=== PATIENT | male | born 1945 | race Caucasian/White ===

== ENCOUNTER 2018-05-23 09:20 | Observation (INO) | payer OTHER ==
[~2018-05-23] VITALS: Ht 185.4 cm; Wt 149.2 kg
[~2018-05-23 09:20] MED LIST: AMLODIPINE BESY10 MG PO; HYDRALAZINE HCL25 MG PO; METOPROLOL TART50 MG PO; NORCO 10-325 T1 EACH PO; ULTRAM50 MG PO
[2018-05-23 10:40] LABS: BASOPHILS # (AUTO) 0.1 (0.0-0.1); BASOPHILS % 0.5 % (0.0-1.0); EOSINOPHILS # (AUTO) 0.3 (0.0-0.4); EOSINOPHILS % 2.3 % (0.0-6.0); HEMATOCRIT 42.8 % (38.2-49.6); HEMOGLOBIN 14.3 g/dL (14.0-18.0); LYMPHOCYTES # (AUTO) 1.4 (1.0-3.2); LYMPHOCYTES % 11.6 % (18.0-39.1); MEAN CORPUSCULAR HEMOGLOBIN 28.9 pg (28-32); MEAN CORPUSCULAR HGB CONC 33.4 g/dL (31-35); MEAN CORPUSCULAR VOLUME 86.6 fL (81-99); MONOCYTES # (AUTO) 0.8 (0.2-0.8); MONOCYTES % 6.2 % (4.4-11.3); NEUTROPHILS # (AUTO) 9.9 (2.1-6.9); NEUTROPHILS % 79.1 % (38.7-80.0); PLATELET COUNT 287 x10e3/uL (140-360); RED BLOOD COUNT 4.94 x10e6/uL (4.3-5.7); RED CELL DISTRIBUTION WIDTH 14.9 % (11.7-14.4)
[2018-05-23] MEDS: ASPIRIN 325 MG TAB PO ONE ×2 (10:46→10:47)
--- NOTE | 2018-05-23 10:48 | Diagnostic Imaging Report ---
EXAMINATION: CHEST SINGLE (PORTABLE) INDICATION: Chest pain. Shortness of breath COMPARISON: None FINDINGS: TUBES and LINES: None. LUNGS: Lungs are well inflated. Lungs are clear. There is no evidence of pneumonia or pulmonary edema. PLEURA: No pleural effusion or pneumothorax. HEART AND MEDIASTINUM: The cardiomediastinal silhouette is unremarkable. BONES AND SOFT TISSUES: No acute osseous lesion. Soft tissues are unremarkable. UPPER ABDOMEN: No free air under the diaphragm. IMPRESSION: No acute thoracic abnormality. Signed by: Dr. Seth Kay M.D. on 05/23/2018 10:45 AM
[2018-05-23 11:01] LABS: ALANINE AMINOTRANSFERASE 34 IU/L (0-55); ALBUMIN 3.6 g/dL (3.5-5.0); ALBUMIN/GLOBULIN RATIO 1.2 (0.8-2.0); ALKALINE PHOSPHATASE 85 IU/L (40-150); BLOOD UREA NITROGEN 17 mg/dL (7-26); BUN/CREATININE RATIO 20 (6-25); CALCIUM 9.3 mg/dL (8.4-10.2); CARBON DIOXIDE 25 mmol/L (22-29); CHLORIDE 105 mmol/L (98-107); CREATINE KINASE 48 IU/L (30-200); CREATININE, SERUM 0.85 mg/dL (0.72-1.25); EST GLOMERULAR FILTRATION RATE > 60 ML/MIN (60-); GLUCOSE 117 mg/dL (74-118); SODIUM 140 mmol/L (136-145)
--- OUTSIDE RECORDS SUMMARY | 2018-05-23 11:40 | XMS REPORT ---
Author Author [facility] Address Unknown Phone Unavailable Care Team Providers Care Residential Nurse Name Role Phone Gorge MCBRIDE Unavailable Unavailable Problems This patient has no known problems. Allergies, Adverse Reactions, Alerts This patient has no known allergies or adverse reactions. Medications This patient has no known medications. Results Test Description Test Time Test Comments Text Results Atomic Results Result Comments CHEST SINGLE (PORTABLE) 2018-05-23 10:45:00 [facility] [address] [address] Patient Name: JUAN CARLOS MILIAN V MR #: [id number] : 1945 Age/Sex: 72/M Req #: [id number] Adm Physician: Ordered by: SAMUEL MCBRIDE MD Report #: [id number] Location: ER Room/Bed: Procedure: [id number] DX/CHEST SINGLE (PORTABLE) Exam Date: 05/23/18 Exam Time: 1015 REPORT STATUS: Signed EXAMINATION: CHEST SINGLE (PORTABLE) I NDICATION: Chest pain. Shortness of breath COMPARISON: None FINDINGS: TUBES and LINES: None. LUNGS: Lungs are well inflated. Lungs are clear. There is no evidence of pneumonia or pulmonary edema. PLEURA: No pleural effusion or pneumothorax. HEART AND MEDIASTINUM: The cardiomediastinal silhouette is unremarkable. BONES AND SOFT TISSUES: No acute osseous lesion. Soft tissues are unremarkable. UPPER ABDOMEN: No free air under the diaphragm. IMPRESSION: No acute thoracic abnormality. Signed by: Dr. Seth Kay M.D. on 05/23/2018 10:45 AM Dictated By: SETH KAY MD, MD 1045 Transcribed By: WAYNE on 05/23/18 1045 COPY TO: SAMUEL MCBRIDE MD
[2018-05-23] MEDS: FAMOTIDINE 20 MG/2 ML VIAL IV SCH ×2 (12:00→20:59)
[2018-05-23 13:03] LABS: CHOL/HDL RATIO 4.6 (3.9-4.7)
[2018-05-23 13:25] LABS: THYROID STIMULATING HORMONE 1.982 uIU/mL (0.350-4.940)
--- NOTE | 2018-05-23 13:32 | Consultation ---
DATE OF CONSULTATION: May 23, 2018 CARDIOLOGY CONSULTATION REQUESTING PHYSICIAN: Dr. Sandoval REASON FOR CONSULT: Chest pain, shortness of breath. HISTORY OF PRESENT ILLNESS: Mr. Doimnguez is a 71-year-old gentleman with past medical history as listed below. Apparently, he has been experiencing chest pain off and on for the last 6 months or so. He has also been getting short of breath for the last several weeks and had some leg edema, and he decided to come to the hospital. He stated the chest pain was mild all across his chest. He thought it was reflux. However, since it continued to persist, he called the office, and he was advised to get to the ER. REVIEW OF SYMPTOMS CONSTITUTIONAL: Had some fatigue and weakness. HEENT: No headache, blurring of vision, seizure or syncope. CARDIOVASCULAR: Chest pain. Has some dyspnea. Has leg edema. No orthopnea or PND. RESPIRATORY: No cough, fever, or expectoration. GI: No abdominal pain, vomiting or diarrhea. : No dysuria, frequency, incontinence. ALLERGIES: AZITHROMYCIN. MEDICATIONS: See list. PAST MEDICAL HISTORY 1. History of hypertension. 2. History of chronic backache. 3. History of cellulitis. PAST SURGICAL HISTORY: Tonsillectomy. SOCIAL HISTORY: He does not smoke or drink. FAMILY HISTORY: Noncontributory. PHYSICAL EXAMINATION GENERAL: Obese gentleman who is awake, alert, not in any obvious distress. VITALS: Heart rate 69, blood pressure 142/78, respiratory rate 19, temperature 97.6. HEENT: Atraumatic. NECK: No JVD, bruit, thyromegaly, or lymphadenopathy. CARDIOVASCULAR: The 1st and 2nd heart sounds are heard. No murmurs, rubs or gallops appreciated. CHEST: Decreased air entry at the bases. No adventitious sounds appreciated. ABDOMEN: Obese, nontender. EXTREMITIES: 1+ edema. LABS: WBC 12.4, hemoglobin 14.3, hematocrit 42.8, platelets 287. Sodium 140, potassium 4.0, chloride 108, BUN 17, creatinine 0.5. Troponin 0.03. BNP 604. AST 18, ALT 34, alk phos 85. EKG shows sinus rhythm at 67 beats per minute, normal axis, normal intervals, LVH, ST depression V5 and V6. Chest x-ray: No acute thoracic abnormality. IMPRESSION 1. Congestive heart failure. 2. Chest pain. 3. Hypertension. 4. Obesity. 5. Chronic backache. PLAN 1. IV diuresis. 2. Follow serial cardiac enzymes. 3. Get echocardiogram to assess LV function and valvular function. 4. Treat him with aspirin, beta kd, and CECIL inhibitor. 5. Further cardiac workup depending on clinical course. 6. Counseled on diet, fluid restriction and low salt. 7. I discussed my impression and plan of management with the patient, and he understands. As always, I appreciate and thank you very much for your referrals. Job#: [id number]
[2018-05-23 15:39] VITALS: BP 141/80
[2018-05-23 16:22] VITALS: BP 141/80
[2018-05-23 20:00] VITALS: BP 178/85
[2018-05-23] MEDS ORDERED: HYDRALAZINE HCL 20 MG/ML VIAL IV PRN (20:45)
[2018-05-23 21:47] VITALS: BP 145/67
[2018-05-23 23:32] VITALS: BP 145/67
[2018-05-24 01:00] VITALS: BP 144/76
[2018-05-24 04:50] VITALS: BP 179/79
[2018-05-24 05:12] LABS: BASOPHILS # (AUTO) 0.1 (0.0-0.1); BASOPHILS % 0.5 % (0.0-1.0); EOSINOPHILS # (AUTO) 0.2 (0.0-0.4); EOSINOPHILS % 1.8 % (0.0-6.0); HEMATOCRIT 41.5 % (38.2-49.6); HEMOGLOBIN 13.8 g/dL (14.0-18.0); LYMPHOCYTES # (AUTO) 1.8 (1.0-3.2); LYMPHOCYTES % 15.3 % (18.0-39.1); MEAN CORPUSCULAR HEMOGLOBIN 28.9 pg (28-32); MEAN CORPUSCULAR HGB CONC 33.3 g/dL (31-35); MEAN CORPUSCULAR VOLUME 86.8 fL (81-99); MONOCYTES # (AUTO) 0.8 (0.2-0.8); MONOCYTES % 6.6 % (4.4-11.3); NEUTROPHILS # (AUTO) 8.7 (2.1-6.9); NEUTROPHILS % 75.5 % (38.7-80.0); PLATELET COUNT 260 x10e3/uL (140-360); RED BLOOD COUNT 4.78 x10e6/uL (4.3-5.7)
[2018-05-24 05:46] LABS: CREATINE KINASE MB 2.5 ng/mL (0-5.0)
[2018-05-24 05:55] VITALS: BP 169/71
[2018-05-24 05:59] LABS: ANION GAP 13.7 mmol/L (8-16); BLOOD UREA NITROGEN 13 mg/dL (7-26); BUN/CREATININE RATIO 16 (6-25); CARBON DIOXIDE 24 mmol/L (22-29); CHLORIDE 106 mmol/L (98-107); CREATININE, SERUM 0.81 mg/dL (0.72-1.25); EST GLOMERULAR FILTRATION RATE > 60 ML/MIN (60-); GLUCOSE 125 mg/dL (74-118); POTASSIUM 3.7 mmol/L (3.5-5.1); SODIUM 140 mmol/L (136-145)
[2018-05-24 08:00] VITALS: BP 183/78
[2018-05-24] MEDS: FAMOTIDINE 20 MG/2 ML VIAL IV SCH (08:24)
[2018-05-24 08:38] VITALS: BP 183/78
[2018-05-24] MEDS ORDERED: ASPIRIN 325 MG TAB EC PO SCH (09:00)
[2018-05-24] MEDS ORDERED: LISINOPRIL 2.5 MG TAB PO SCH (09:00)
[2018-05-24] MEDS ORDERED: FUROSEMIDE INJ 10 MG/ML 4 ML VIAL IV SCH (09:00)
[2018-05-24] MEDS ORDERED: POTASSIUM CHLORIDE 10MEQ EA PO SCH (09:00)
[2018-05-24] MEDS ORDERED: METOPROLOL SUCCINATE 25 MG TAB XL PO SCH (09:00)
[2018-05-24] MEDS ORDERED: LASIX40 MG PO (09:36)
[2018-05-24] MEDS ORDERED: POTASSIUM CHLO20 ME1 PO (09:37)
--- NOTE | 2018-05-24 10:07 | History and Physical ---
PRIMARY CARE PROVIDER: Dr. Srinivas Hurtado. WALLBOARD WORKER: Juan M Gamez MD CHIEF COMPLAINT: Chest pain and shortness of breath. HISTORY: This 72-year-old male came to the hospital with chest pain and shortness of breath. Patient was seen by Dr. Gamez. Patient is doing much better now. He is stable. Cardiac enzymes have been negative. Echocardiogram showed that the patient's ejection fraction is approximately 55% to 60% with trace AI and MR. The patient has some fluid overload. He does have chronic venous skin changes of the lower extremities. Patient is obese. PAST MEDICAL HISTORY: Hypertension. Chronic lower back pain. PAST SURGICAL HISTORY: Tonsillectomy. HOME MEDICATIONS: He is taking Norvasc, hydralazine and metoprolol. ALLERGIES: AZITHROMYCIN. SOCIAL HISTORY: Patient does not smoke or use alcohol. No recreational drugs. REVIEW OF SYSTEMS: Atypical chest pain, nonradiating. No nausea or vomiting. Some shortness breath especially with exertion. PHYSICAL EXAMINATION: GENERAL: The patient is not in acute distress. He is awake. VITAL SIGNS: Temperature is 98, blood pressure 183/78. Pulse rate 77. Respirations 18. HEENT: Normocephalic and atraumatic. Sclerae are anicteric. NECK: Supple grossly. No JVD. PULMONARY: Diminished breath sounds at bases with no wheezing or rales. CARDIOVASCULAR: S1 and S2. Regular rate and rhythm. ABDOMEN: Soft, obese. Nontender. Nondistended. EXTREMITIES: 1+ edema with chronic venous skin changes. NEUROLOGIC: No gross focal deficit. LABORATORY: Sodium is 140, potassium 3.7, chloride 106, bicarb 24, BUN 13, creatinine 0.8. Glucose 125. WBC 11.5, hemoglobin 13.8. Hematocrit 41.5. Platelets 260. Echocardiogram: Ejection fraction of 55% to 60%. Chest x-ray is unremarkable. IMPRESSION 1. Atypical chest pain. 2. Fluid overload, possible secondary to obesity versus diastolic dysfunction heart failure. PLAN: Continue with diuresis. Resume home medication. Patient was seen by Dr. Gamez. The patient would like to go home and follow up next week for cardiac stress test. He does not want to wait until Sunday to receive his stress test. The patient is otherwise stable. He is stable to go home and follow up with Dr. Gamez. Job#: [id number]
--- NOTE | 2018-05-24 15:37 | Discharge Summary ---
PRIMARY CARE PHYSICIAN: Dr. Srinivas Hurtado. MARKET DEVELOPMENT EXECUTIVE: Dr. Juan M Gamez. FINAL DIAGNOSES 1. Fluid overload, possible acute diastolic dysfunction heart failure with ejection fraction of 55% to 60%. 2. Lower extremity edema, improving with intravenous Lasix. 3. Obesity. 4. Chest pain, atypical. PLAN: Patient will follow up with Dr. Gamez next week for stress test. The patient is otherwise stable. Please review my history and physical. Patient is to follow up. He will resume his home medication. I will add on Lasix 40 mg once a day along with potassium 20 mEq daily. The patient is to follow up and have his blood rechecked for renal function with his primary care physician, Dr. Srinivas Hurtado. Job#: [id number]
== END 2018-05-24 10:08 | disposition home or self-care (01) ==
LOC: ER 09:20 → ERHOLD 11:24 → IMCU 14:50
PROVIDERS: ADMIT Internal Medicine; ATTEND Internal Medicine
DX: I11.0 Hypertensive heart disease with heart failure (principal); I50.33 Acute on chronic diastolic (congestive) heart failure; R07.2 Precordial pain; M54.9 Dorsalgia, unspecified; I10 Essential (primary) hypertension; E87.70 Fluid overload, unspecified; Z88.1 Allergy status to other antibiotic agents; E66.9 Obesity, unspecified; Z68.41 Body mass index [BMI] 40.0-44.9, adult
CPT/HCPCS: 36415 ×2; 71045; 80048; 80053; 80061 ×2; 82550 ×2; 82553 ×2; 83880; 84443; 84484 ×2; 85025 ×2; 93005; 93306; 99284; G0378 ×2; J0360

== ENCOUNTER → 2018-07-24 | Outpatient (CLI) | payer OTHER ==
[~2018-07-24] MED LIST changes: +LASIX40 MG PO; +POTASSIUM CHLO20 ME1 PO; +REGADENOSON 0.4 MG/5 ML SYR IV ONE
--- NOTE | 2018-07-25 14:01 | Cardiology Report ---
DATE OF STUDY: July 24, 2018 LEXISCAN NUCLEAR STRESS TEST INDICATIONS: Chest pain. DESCRIPTION OF PROCEDURE: After informed consent, patient was brought to the stress lab. He was given 10.7 mCi of technetium 99 Myoview, and myocardial perfusion SPECT images were obtained in the horizontal long axis, short axis and vertical long axis views. Subsequently patient was given 0.4 mg Lexiscan over 10 seconds. Patient was given 33 mCi of technetium 99 Myoview, and myocardial perfusion SPECT images were obtained in the horizontal long axis, short axis and vertical long axis views. Gaiting images were also obtained. Patient tolerated this procedure without any complications. REPORT: Baseline EKG shows sinus rhythm at 75 beats per minute. Normal axis. Normal intervals. ST depression in the inferolateral leads. PARAMETERS 1. Resting heart rate is 75 beats per minute. 2. Maximal heart rate is 90 beats per minute. 3. Resting blood pressure is 149/67 mmHg. 4. Maximum blood pressure 156/71 mmHg. REASON FOR TERMINATION: Endpoint attained. INTERPRETATION 1. Negative for chest pain. 2. Negative for arrhythmias. 3. Blood pressure response consistent with Lexiscan. 4. No significant ST-T changes seen during Lexiscan infusion compared to baseline. 5. Analysis of SPECT images reveals a small to moderate area of decreased radioisotope uptake in the anterior apical wall during stress, which partially reverses during rest. There is a moderate area of decreased radioisotope uptake in the inferior wall both during stress and rest without any significant reversible perfusion defects. CONCLUSIONS 1. This study demonstrates a small to moderate area of anterior apical ischemia with a small area of apical infarct. 2. There is a moderate area of inferior wall infarct. 3. The inferior apical wall is hypokinetic. 4. The overall ejection fraction is 35%. Job#: [id number]
== END ==
LOC: NM 08:28
DX: R07.2 Precordial pain (principal)
CPT/HCPCS: 78452; 93017; A9502; J2785

== ENCOUNTER 2018-08-28 06:12 | Observation (INO) | payer MEDICARE ==
[2018-08-27 10:22] LABS: BASOPHILS # (AUTO) 0.1 (0.0-0.1); BASOPHILS % 0.7 % (0.0-1.0); EOSINOPHILS # (AUTO) 0.4 (0.0-0.4); EOSINOPHILS % 3.9 % (0.0-6.0); HEMATOCRIT 39.8 % (38.2-49.6); HEMOGLOBIN 12.5 g/dL (14.0-18.0); LYMPHOCYTES # (AUTO) 1.6 (1.0-3.2); LYMPHOCYTES % 13.9 % (18.0-39.1); MEAN CORPUSCULAR HEMOGLOBIN 26.9 pg (28-32); MEAN CORPUSCULAR HGB CONC 31.4 g/dL (31-35); MEAN CORPUSCULAR VOLUME 85.6 fL (81-99); MONOCYTES # (AUTO) 0.8 (0.2-0.8); MONOCYTES % 6.7 % (4.4-11.3); NEUTROPHILS # (AUTO) 8.5 (2.1-6.9); NEUTROPHILS % 74.4 % (38.7-80.0); PLATELET COUNT 273 x10e3/uL (140-360); RED BLOOD COUNT 4.65 x10e6/uL (4.3-5.7); RED CELL DISTRIBUTION WIDTH 14.8 % (11.7-14.4)
[2018-08-27 10:41] LABS: INR 0.98; PROTHROMBIN TIME 13.9 seconds (11.9-14.5)
[2018-08-27 10:42] LABS: PARTIAL THROMBOPLASTIN TIME 33.1 seconds (23.8-35.5)
[2018-08-27 10:48] LABS: ALANINE AMINOTRANSFERASE 28 IU/L (0-55); ALBUMIN 3.5 g/dL (3.5-5.0); ALBUMIN/GLOBULIN RATIO 1.2 (0.8-2.0); ALKALINE PHOSPHATASE 85 IU/L (40-150); ANION GAP 15.5 mmol/L (8-16); BLOOD UREA NITROGEN 24 mg/dL (7-26); BUN/CREATININE RATIO 23 (6-25); CALCIUM 9.2 mg/dL (8.4-10.2); CARBON DIOXIDE 27 mmol/L (22-29); CHLORIDE 100 mmol/L (98-107); CREATININE, SERUM 1.05 mg/dL (0.72-1.25); EST GLOMERULAR FILTRATION RATE > 60 ML/MIN (60-); GLUCOSE 106 mg/dL (74-118); POTASSIUM 4.5 mmol/L (3.5-5.1); SODIUM 138 mmol/L (136-145)
--- NOTE | 2018-08-27 11:11 | Diagnostic Imaging Report ---
EXAM: CHEST 2 VIEWS, PA and lateral DATE: 08/27/2018Time stamp on exam: 10:27 AM INDICATION: Preoperative for cardiac catheterization COMPARISON: None FINDINGS: LINES/TUBES: None LUNGS: No consolidations or edema. PLEURA: No effusions or pneumothorax. HEART AND MEDIASTINUM: Tortuous and calcified thoracic aorta. The heart is not enlarged. No mediastinal adenopathy. BONES AND SOFT TISSUES: No acute findings. Degenerative changes of the spine. IMPRESSION: No acute thoracic abnormality. Signed by: Dr. Mayito Hutchinson DO on 08/27/2018 11:07 AM
[~2018-08-28] VITALS: Ht 185.4 cm; Wt 145.1 kg
[2018-08-28] VITALS (28 sets, daily range): BP systolic 98–148; BP diastolic 56–123
[~2018-08-28 06:12] MED LIST changes: -REGADENOSON 0.4 MG/5 ML SYR IV ONE
--- OUTSIDE RECORDS SUMMARY | 2018-08-28 06:15 | XMS REPORT | Clinical Summary ---
Author Author [facility] Address Unknown Phone Unavailable Care Team Providers Care Skin Tanner Name Role Phone Srinivas Hurtado MD PCP Allergies Comments Active Allergy Reactions Severity Noted Date Pt reacted with hives all over his body after receiving z-pack for a cold Azithromycin Hives 07/19/2018 Medications End Date Status Medication Sig Dispensed Refills Start Date Active amlodipine-benazepril Take 1 1 (LOTREL) 10-40 mg per capsule by 8 capsule mouth every morning. Active hydrALAZINE (APRESOLINE) Take 1 tablet 1 25 MG tablet by mouth 2 8 (two) times a day. Active metoprolol tartrate Take 1 tablet 1 (LOPRESSOR) 50 mg tablet by mouth 2 8 (two) times a day. Active omeprazole (PriLOSEC) 20 Take 1 0 MG capsule capsule by 8 mouth every morning. Active furosemide (LASIX) 40 mg Take 1 tablet 1 tablet by mouth 8 every morning. Active potassium chloride Take 1 tablet 0 (K-DUR) 20 MEQ CR tablet by mouth 8 every morning. Active tiZANidine (ZANAFLEX) 4 Take 1 tablet 0 MG tablet by mouth 8 nightly as needed. Active aspirin (ECOTRIN) 325 MG Take 325 mg 0 enteric coated tablet by mouth every morning. 07/25/2018 levoFLOXacin (LEVAQUIN) Take 1 tablet 5 tablet 0 250 MG tablet (250 mg 8 total) by mouth daily for 5 days. Active Problems Problem Noted Date Chest pain 07/20/2018 SOB (shortness of breath) 07/19/2018 Encounters Care Team Description Date Type Specialty Renato Starkey DO SOB (shortness of breath) (Primary Dx) 07/19/2018 [facility] General Internal Medicine - Encounter 07/20/2018 after 08/27/2017 Family History Medical History Relation Name Comments Cancer Father Lung cancer Relation Name Status Comments Father Lung cancer Social History Date Tobacco Use Types Packs/Day Years Used Never Smoker Smokeless Tobacco: Never Used Alcohol Use Drinks/Week oz/Week Comments No Alcohol Habits Answer Date Recorded How often do you have a drink containing alcohol? Never 07/19/2018 How many drinks containing alcohol do you have on Not asked a typical day when you are drinking? How often do you have six or more drinks on one Not asked occasion? Sex Assigned at Date Recorded Not on file Industry Job Start Date Occupation Not on file Not on file Not on file Travel End Travel History Travel Start No recent travel history available. Last Filed Vital Signs Time Taken Vital Sign Reading 07/20/2018 10:28 AM SUPPLY ROOM CLERK Blood Pressure 162/72 07/20/2018 10:28 AM SUPPLY ROOM CLERK Pulse 71 07/20/2018 10:28 AM SUPPLY ROOM CLERK Temperature 36.6 C (97.9 F) 07/20/2018 10:28 AM SUPPLY ROOM CLERK Respiratory Rate 18 07/20/2018 10:28 AM SUPPLY ROOM CLERK Oxygen Saturation 96% - Inhaled Oxygen - Concentration - Weight - 07/19/2018 5:00 PM SUPPLY ROOM CLERK Height 185.4 cm (6' 1") - Body Mass Index - Plan of Treatment Health Maintenance Due Date Last Done Comments COLON CANCER SCREENING 1994 SHINGLES VACCINES (1 of 1994 2) PNEUMOCOCCAL 2009 POLYSACCHARIDE VACCINE AGE 65 AND OVER PNEUMOCOCCAL-13 2009 INFLUENZA VACCINE 02/20/2018 Procedures Comments Procedure Name Priority Date/Time Associated Diagnosis ESTIMATED GFR Routine 07/20/2018 4:22 AM SUPPLY ROOM CLERK BASIC METABOLIC PANEL Routine 07/20/2018 4:22 AM SUPPLY ROOM CLERK HC COMPLETE BLD COUNT Routine 07/20/2018 W/AUTO DIFF 4:22 AM SUPPLY ROOM CLERK TROPONIN Timed 07/20/2018 12:28 AM SUPPLY ROOM CLERK TROPONIN Timed 07/19/2018 5:52 PM SUPPLY ROOM CLERK CT ANGIOGRAM PE CHEST Routine 07/19/2018 5:30 PM SUPPLY ROOM CLERK after 08/27/2017 Results * Estimated GFR (07/20/2018 4:22 AM SUPPLY ROOM CLERK) Estimated GFR 66 mL/min/1.73 m2 [facility] Comment: [facility] CatergoryUnitsInte rpretation G1 >=90 Normal or high G2 60-89Mildly decreased [id number] Mildly to moderately decreased [id number] Moderately to severely decreased G4 15-29Severely decreased G5 <15Kidney failure The eGFR was calculated using the Chronic Kidney Disease Epidemiology Collaboration (CKD-EPI) equation. Interpretation is based on recommendations of the National Kidney Foundation-Kidney Disease Outcomes Quality Initiative (NKF-KDOQI) published in 2014. Specimen Plasma specimen Performing Organization Address City/State/Zipcode Phone Number [facility] [address] [place] [address] PATHOLOGY AND GENOMIC MEDICINE [facility] [address] [place], [place] [id number] [place] [address] * CBC with platelet and differential (07/20/2018 4:22 AM SUPPLY ROOM CLERK) WBC 10.78 4.50 - 11.00 k/uL [facility] RBC 4.79 4.40 - 6.00 m/uL [facility] HGB 13.4 (L) 14.0 - 18.0 g/dL [facility] HCT 42.0 41.0 - 51.0 % [facility] MCV 87.7 82.0 - 100.0 fL [facility] MCH 28.0 27.0 - 34.0 pg [facility] MCHC 31.9 31.0 - 37.0 g/dL [facility] RDW - SD 47.2 37.0 - 55.0 fL [facility] MPV 9.2 8.8 - 13.2 fL [facility] Platelet count 300 150 - 400 k/uL [facility] Nucleated RBC 0.00 /100 WBC [facility] Neutrophils 75.0 (H) 39.0 - 69.0 % [facility] Lymphocytes 15.0 (L) 25.0 - 45.0 % [facility] Monocytes 6.8 0.0 - 10.0 % [facility] Eosinophils 2.3 0.0 - 5.0 % [facility] Basophils 0.6 0.0 - 1.0 % [facility] Specimen Blood Performing Organization Address City/[facility] Phone Number [address] [place] [address] PATHOLOGY AND GENOMIC MEDICINE [address] * Basic metabolic panel (07/20/2018 4:22 AM SUPPLY ROOM CLERK) Sodium 142 135 - 148 mEq/L [facility] Potassium 3.8 3.5 - 5.0 mEq/L [facility] Chloride 103 98 - 112 mEq/L [facility] CO2 28 24 - 31 mEq/L [facility] Anion gap 11@ANIO 7 - 15 mEq/L [facility] BUN 20 8 - 23 mg/dL [facility] Creatinine 1.10 0.70 - 1.20 mg/dL [facility] Glucose 126 (H) 65 - 99 mg/dL [facility] Calcium 9.2 8.8 - 10.2 mg/dL [facility] Specimen Plasma specimen Performing Organization Address [facility] Phone Number [address] [place] [address] PATHOLOGY AND GENOMIC MEDICINE [address] * Troponin (07/20/2018 12:28 AM SUPPLY ROOM CLERK) Only the most recent of 2 results within the time period is included. Troponin <0.300 0.000 - 0.300 ng/mL [facility] Comment: [facility] 0.30 - 1.49 ng/mlMay indicate increased risk of acute coronary syndrome. >=1.5 ng/ml Consistent with acute myocardial infarction. The diagnostic value of a single normal or non-diagnostic result is questionable.Serial samples at 2-6 hour intervals are required to rule out acute myocardial injury. Specimen Plasma specimen Performing Organization Address City/[facility] Phone Number [address] [place] [address] PATHOLOGY AND GENOMIC MEDICINE [facility] [address] [place] [address] [facility] * CT Angiogram Pe Chest (07/19/2018 5:30 PM SUPPLY ROOM CLERK) Narrative Performed At EXAMINATION: RADIANT CT ANGIOGRAM PE CHEST CLINICAL HISTORY:72 years Male PE r o TECHNIQUE:CT angiographic images of the chest were obtained during intravenous administration of iodinated contrast. Computerized reformatted images and 3-D MIP images were also obtained and archived (CT pulmonary embolus protocol). CT imaging was performed with iterative reconstruction techniques and/or automated exposure control to reduce radiation dose. COMPARISON: None. FINDINGS: CHEST: Pulmonary arteries: Normal in size. No intraluminal filling defects. Lungs and airways: Minimal groundglass opacities are present in the lung bases likely related to hypoventilation. There is minimal bibasilar atelectasis. There are no focal consolidations or suspicious pulmonary nodules. Pleura: Tiny dependent bilateral pleural effusions are present. No pneumothorax. Mediastinum and lymph nodes: No hilar or mediastinal mass or adenopathy.There are small paratracheal, prevascular, and subcarinal lymph nodes. Cardiovascular: The heart size is normal. Minimal coronary calcifications are present. There are mild aortic and mitral valvular calcifications. There is no pericardial effusion. Upper abdomen: There are small bilateral adrenal adenomas. The upper abdomen is otherwise unremarkable. Bones: The thoracic aorta is minimally atherosclerotic without evidence of aneurysm or dissection. Moderate hypertrophic changes are present in the thoracic spine. There are no suspicious bony abnormalities. Other: There is moderate gynecomastia, greater on the left. IMPRESSION: 1.No CT evidence of acute pulmonary thromboembolic disease. 2.Minimal bibasilar atelectasis with tiny bilateral dependent pleural effusions. 3.Minimal CAD. Mild aortic and mitral valvular disease. 4.Small benign bilateral adrenal adenomas. 5.Gynecomastia, greater on the left. [id number] Procedure Note Interface, Radiology Results Incoming - 07/19/2018 5:42 PM SUPPLY ROOM CLERK EXAMINATION: CT ANGIOGRAM PE CHEST CLINICAL HISTORY:72 years Male PE r o TECHNIQUE: CT angiographic images of the chest were obtained during intravenous administration of iodinated contrast. Computerized reformatted images and 3-D MIP images were also obtained and archived (CT pulmonary embolus protocol). CT imaging was performed with iterative reconstruction techniques and/or automated exposure control to reduce radiation dose. COMPARISON: None. FINDINGS: CHEST: Pulmonary arteries: Normal in size. No intraluminal filling defects. Lungs and airways: Minimal groundglass opacities are present in the lung bases likely related to hypoventilation. There is minimal bibasilar atelectasis. There are no focal consolidations or suspicious pulmonary nodules. Pleura: Tiny dependent bilateral pleural effusions are present. No pneumothorax. Mediastinum and lymph nodes: No hilar or mediastinal mass or adenopathy.There are small paratracheal, prevascular, and subcarinal lymph nodes. Cardiovascular: The heart size is normal. Minimal coronary calcifications are present. There are mild aortic and mitral valvular calcifications. There is no pericardial effusion. Upper abdomen: There are small bilateral adrenal adenomas. The upper abdomen is otherwise unremarkable. Bones: The thoracic aorta is minimally atherosclerotic without evidence of aneurysm or dissection. Moderate hypertrophic changes are present in the thoracic spine. There are no suspicious bony abnormalities. Other: There is moderate gynecomastia, greater on the left. IMPRESSION: 1. No CT evidence of acute pulmonary thromboembolic disease. 2. Minimal bibasilar atelectasis with tiny bilateral dependent pleural effusions. 3. Minimal CAD. Mild aortic and mitral valvular disease. 4. Small benign bilateral adrenal adenomas. 5. Gynecomastia, greater on the left. [id number] Performing Organization Address City/State/Zipcode Phone Number [facility] [address] [place] [address] after 08/27/2017 Insurance Payer Benefit Subscriber ID Type Phone Address Plan / Group [employer] xxxxxxxxx [facility] Advance Directives Patient has advance care planning documents on file. For more information, hitesh magana contact: Sharan Reese [address] [place] [address]
[2018-08-28] MEDS ORDERED: LIDOCAINE HCL 1% LOCAL INJ 20 ML VIAL ONE (06:57)
[2018-08-28] MEDS ORDERED: HEPARIN SOD/SOD CHLORIDE 2,000 ML ONE (06:57)
[2018-08-28] MEDS ORDERED: IOPAMIDOL 370 MG/ML 200 ML INFUS..BTL INJ ONE ×2 (06:57→08:22)
[2018-08-28] MEDS ORDERED: FENTANYL CITRATE/PF 100MCG/2 ML INJ ONE (07:03)
[2018-08-28] MEDS ORDERED: MIDAZOLAM HCL 2 MG/2 ML VIAL ONE (07:03)
[2018-08-28] MEDS ORDERED: SODIUM CHLORIDE 0.9% 1000ML 1,000 ML ONE (07:03)
[2018-08-28] MEDS ORDERED: BIVALRIUDIN 250 MG/VIAL VIAL IV ONE ×2 (08:03→08:25)
[2018-08-28] MEDS ORDERED: SODIUM CHLORIDE 0.9% 50ML 50 ML ONE ×2 (08:04→08:26)
[2018-08-28] MEDS ORDERED: CLOPIDOGREL BISULFATE 75 MG TAB ONE (08:39)
[2018-08-28] MEDS ORDERED: ASPIRIN 325 MG TAB ONE (08:39)
[2018-08-28] MEDS ORDERED: HYDROCODONE/APAP 5MG-325MG TAB ONE (11:14)
[2018-08-28] MEDS ORDERED: ATROPINE SULFATE 0.1 MG/ML 10ML SYR ONE (12:30)
--- OUTSIDE RECORDS SUMMARY | 2018-08-28 12:59 | XMS REPORT | Clinical Summary ---
Author Author [facility] Address Unknown Phone Unavailable Care Team Providers Care It Communications Specialist Name Role Phone Srinivas Hurtado MD PCP [...] SOB (shortness of breath) (Primary Dx) 07/19/2018 [facility] General Internal Medicine - Encounter 07/20/2018 after [...] Taken Vital Sign Reading 07/20/2018 10:28 AM CYBER WORKFORCE DEVELOPER AND MANAGER Blood Pressure 162/72 07/20/2018 10:28 AM CYBER WORKFORCE DEVELOPER AND MANAGER Pulse 71 07/20/2018 10:28 AM CYBER WORKFORCE DEVELOPER AND MANAGER Temperature 36.6 C (97.9 F) 07/20/2018 10:28 AM CYBER WORKFORCE DEVELOPER AND MANAGER Respiratory Rate 18 07/20/2018 10:28 AM CYBER WORKFORCE DEVELOPER AND MANAGER Oxygen Saturation 96% - Inhaled Oxygen - Concentration - Weight - 07/19/2018 5:00 PM CYBER WORKFORCE DEVELOPER AND MANAGER Height 185.4 cm (6' 1") - Body Mass Index - Plan of Treatment Health Maintenance Due Date Last Done Comments COLON CANCER SCREENING 1994 SHINGLES VACCINES (1 of 1994 2) PNEUMOCOCCAL 2009 POLYSACCHARIDE VACCINE AGE 65 AND OVER PNEUMOCOCCAL-13 2009 INFLUENZA VACCINE 02/20/2018 Procedures Comments Procedure Name Priority Date/Time Associated Diagnosis ESTIMATED GFR Routine 07/20/2018 4:22 AM CYBER WORKFORCE DEVELOPER AND MANAGER BASIC METABOLIC PANEL Routine 07/20/2018 4:22 AM CYBER WORKFORCE DEVELOPER AND MANAGER HC COMPLETE BLD COUNT Routine 07/20/2018 W/AUTO DIFF 4:22 AM CYBER WORKFORCE DEVELOPER AND MANAGER TROPONIN Timed 07/20/2018 12:28 AM CYBER WORKFORCE DEVELOPER AND MANAGER TROPONIN Timed 07/19/2018 5:52 PM CYBER WORKFORCE DEVELOPER AND MANAGER CT ANGIOGRAM PE CHEST Routine 07/19/2018 5:30 PM CYBER WORKFORCE DEVELOPER AND MANAGER after 08/27/2017 Results * Estimated GFR (07/20/2018 4:22 AM CYBER WORKFORCE DEVELOPER AND MANAGER) Estimated GFR 66 mL/min/1.73 m2 [facility] Comment: [facility] CatergoryUnitsInte rpretation G1 >=90 Normal or high G2 60-89Mildly decreased [id number] Mildly to moderately decreased [id number] Moderately to severely decreased G4 15-29Severely decreased G5 <15Kidney failure The eGFR was calculated using the Chronic Kidney Disease Epidemiology Collaboration (CKD-EPI) equation. Interpretation is based on recommendations of the National Kidney Foundation-Kidney Disease Outcomes Quality Initiative (NKF-KDOQI) published in 2014. Specimen Plasma specimen Performing Organization Address City/State/Zipcode Phone Number [facility] [address] [place] [address] PATHOLOGY AND GENOMIC MEDICINE [facility] [address] [place], [place] [id number] [place] [address] * CBC with platelet and differential (07/20/2018 4:22 AM CYBER WORKFORCE DEVELOPER AND MANAGER) WBC 10.78 4.50 - 11.00 k/uL [facility] RBC 4.79 4.40 - 6.00 m/uL [facility] HGB 13.4 (L) 14.0 - 18.0 g/dL [facility] HCT 42.0 41.0 - 51.0 % [facility] MCV 87.7 82.0 - 100.0 fL [facility] MCH 28.0 27.0 - 34.0 pg [facility] MCHC 31.9 31.0 - 37.0 g/dL [facility] RDW - SD 47.2 37.0 - 55.0 fL [facility] MPV 9.2 8.8 - 13.2 fL [facility] Platelet count 300 150 - 400 k/uL [facility] Nucleated RBC 0.00 /100 WBC [facility] Neutrophils 75.0 (H) 39.0 - 69.0 % [facility] Lymphocytes 15.0 (L) 25.0 - 45.0 % [facility] Monocytes 6.8 0.0 - 10.0 % [facility] Eosinophils 2.3 0.0 - 5.0 % [facility] Basophils 0.6 0.0 - 1.0 % [facility] Specimen Blood Performing Organization Address City/[facility] Phone Number [address] [place] [address] PATHOLOGY AND GENOMIC MEDICINE [address] * Basic metabolic panel (07/20/2018 4:22 AM CYBER WORKFORCE DEVELOPER AND MANAGER) Sodium 142 135 - 148 mEq/L [facility] Potassium 3.8 3.5 - 5.0 mEq/L [facility] Chloride 103 98 - 112 mEq/L [facility] CO2 28 24 - 31 mEq/L [facility] Anion gap 11@ANIO 7 - 15 mEq/L [facility] BUN 20 8 - 23 mg/dL [facility] Creatinine 1.10 0.70 - 1.20 mg/dL [facility] Glucose 126 (H) 65 - 99 mg/dL [facility] Calcium 9.2 8.8 - 10.2 mg/dL [facility] Specimen Plasma specimen Performing Organization Address [facility] Phone Number [address] [place] [address] PATHOLOGY AND GENOMIC MEDICINE [address] * Troponin (07/20/2018 12:28 AM CYBER WORKFORCE DEVELOPER AND MANAGER) Only the most recent of 2 results within the time period is included. Troponin <0.300 0.000 - 0.300 ng/mL [facility] Comment: [facility] 0.30 - 1.49 ng/mlMay indicate increased risk of acute coronary syndrome. >=1.5 ng/ml Consistent with acute myocardial infarction. The diagnostic value of a single normal or non-diagnostic result is questionable.Serial samples at 2-6 hour intervals are required to rule out acute myocardial injury. Specimen Plasma specimen Performing Organization Address City/[facility] Phone Number [address] [place] [address] PATHOLOGY AND GENOMIC MEDICINE [facility] [address] [place] [address] [facility] * CT Angiogram Pe Chest (07/19/2018 5:30 PM CYBER WORKFORCE DEVELOPER AND MANAGER) Narrative Performed At EXAMINATION: RADIANT CT ANGIOGRAM [...] adrenal adenomas. 5.Gynecomastia, greater on the left. [facility]-[id number] Procedure Note Interface, Radiology Results Incoming - 07/19/2018 5:42 PM CYBER WORKFORCE DEVELOPER AND MANAGER EXAMINATION: CT ANGIOGRAM PE CHEST CLINICAL HISTORY:72 [...] adenomas. 5. Gynecomastia, greater on the left. [facility]-[id number] Performing Organization Address City/State/Zipcode Phone Number [facility] [address] [place] [address] after 08/27/2017 Insurance Payer Benefit Subscriber ID Type Phone Address Plan / Group [employer] TEX[employer] xxxxxxxxx [facility] Advance Directives Patient has advance care planning documents on file. For more information, hitesh magana contact: Sharan Reese [address] [place] [address]
--- NOTE | 2018-08-28 13:15 | NUR ---
Received patient from Cath -Lab patient arrived in stretcher awake alert and oriented x3, transferred to bed with 4 person assist, used bed board. Patient right groin with dressing in place c/d/i inguinal site soft to palpation, instructed patient to remain flat until 1825 tonight. Pulses to right lower extremity assessed with Doppler pulse present. Oriented to room and use of call light, placed on telemetry, verbalized understanding to call when needing assistance.
[2018-08-28] MEDS ORDERED: HYDROCODONE/APAP 5MG-325MG TAB PO PRN (17:15)
[2018-08-28] MEDS ORDERED: MORPHINE SULFATE INJ 4 MG/ML INJ 1ML IV PRN (17:15)
[2018-08-28 18:45] LABS: CHOL/HDL RATIO 3.8 (3.9-4.7)
[2018-08-28] MEDS ORDERED: ATORVASTATIN 20 MG TAB PO SCH (21:00)
[2018-08-28] MEDS ORDERED: ATORVASTATIN 40 MG TAB PO SCH (21:00)
[2018-08-29] VITALS: BP 140/62
[2018-08-29 05:14] VITALS: BP 134/62
[2018-08-29 05:20] LABS: BASOPHILS % 0.3 % (0.0-1.0); EOSINOPHILS # (AUTO) 0.3 (0.0-0.4); EOSINOPHILS % 2.6 % (0.0-6.0); HEMATOCRIT 35.9 % (38.2-49.6); HEMOGLOBIN 11.2 g/dL (14.0-18.0); LYMPHOCYTES # (AUTO) 1.4 (1.0-3.2); LYMPHOCYTES % 14.1 % (18.0-39.1); MEAN CORPUSCULAR HEMOGLOBIN 26.4 pg (28-32); MEAN CORPUSCULAR HGB CONC 31.2 g/dL (31-35); MEAN CORPUSCULAR VOLUME 84.5 fL (81-99); MONOCYTES # (AUTO) 0.7 (0.2-0.8); MONOCYTES % 7.4 % (4.4-11.3); NEUTROPHILS # (AUTO) 7.3 (2.1-6.9); NEUTROPHILS % 75.4 % (38.7-80.0); PLATELET COUNT 224 x10e3/uL (140-360); RED BLOOD COUNT 4.25 x10e6/uL (4.3-5.7); RED CELL DISTRIBUTION WIDTH 14.7 % (11.7-14.4)
[2018-08-29 05:48] LABS: ANION GAP 11.7 mmol/L (8-16); BLOOD UREA NITROGEN 17 mg/dL (7-26); BUN/CREATININE RATIO 21 (6-25); CALCIUM 8.5 mg/dL (8.4-10.2); CARBON DIOXIDE 25 mmol/L (22-29); CHLORIDE 107 mmol/L (98-107); CREATININE, SERUM 0.82 mg/dL (0.72-1.25); EST GLOMERULAR FILTRATION RATE > 60 ML/MIN (60-); GLUCOSE 116 mg/dL (74-118); POTASSIUM 3.7 mmol/L (3.5-5.1); SODIUM 140 mmol/L (136-145)
[2018-08-29 08:00] VITALS: BP_SYST 134; BP_SYST 155; BP_DIAS 46; BP_DIAS 62
[2018-08-29] MEDS ORDERED: METOPROLOL TARTRATE 50 MG TAB PO SCH (09:00)
[2018-08-29] MEDS ORDERED: HYDRALAZINE HCL 25 MG TAB PO SCH (09:00)
[2018-08-29] MEDS ORDERED: POTASSIUM CHLORIDE 20 MEQ TAB CR PO SCH (09:00)
[2018-08-29] MEDS ORDERED: CLOPIDOGREL BISULFATE 75 MG TAB PO SCH (09:00)
[2018-08-29] MEDS ORDERED: ASPIRIN 325 MG TAB PO SCH (09:00)
[2018-08-29] MEDS ORDERED: FUROSEMIDE 40 MG TAB PO SCH (09:00)
[2018-08-29] MEDS ORDERED: AMLODIPINE BESYLATE 10 MG TAB PO SCH (09:00)
[2018-08-29] MEDS ORDERED: PLAVIX75 MG PO (09:40)
[2018-08-29] MEDS ORDERED: ASPIR 8181 MG (09:40)
[2018-08-29] MEDS ORDERED: ATORVASTATIN CA20 MG PO (09:41)
[2018-08-29] MEDS ORDERED: LISINOPRIL2.5 MG PO (09:41)
[2018-08-29] MEDS ORDERED: NITROGLYCERIN0.4 MG SL (09:41)
--- NOTE | 2018-08-29 10:06 | NUR ---
JAMES DISCHARGED AT THIS TIME RX GIVEN EDUCATION AND F/U INSTRUCTIONS IV DC'D SECURED WITH 4X4 GAUZE AND TAPE. PT WAITING FOR RIDE
--- NOTE | 2018-09-04 13:51 | Operative Report ---
DATE OF PROCEDURE: August 28, 2018 INDICATIONS: Abnormal stress test. BLOOD LOSS: 8 mL. ANESTHESIA: Two percent lidocaine for local anesthesia. Fentanyl and Versed for conscious sedation. DESCRIPTION OF PROCEDURE: After informed consent, the patient was brought to the cardiac catheterization laboratory and placed on the table. Both groins were painted and draped in a sterile fashion. Lidocaine injected in the right groin for local anesthesia. Right femoral artery was accessed by Seldinger technique, and a 5-Central African sheath was placed in the right femoral artery. Left main artery was cannulated using a JL4 5-Central African catheter. Coronary angiogram was performed and images obtained in multiple views. The right coronary artery was cannulated using a 3DRC 5-Central African catheter. Coronary angiogram was performed and images obtained in multiple views. LV-gram was performed using a pigtail catheter. After reviewing the images, we decided to intervene on the 99% mid-LAD lesion and the 60% to 70% mid-LAD lesion beyond the 1st diagonal branch. The 5-Central African sheath was exchanged for a 6-Central African sheath over a guidewire. The left main was cannulated using a XP 3.5 6-Central African guide. A Prowater wire was manipulated and placed in the distal LAD. A run through wire was manipulated and placed in the 1st diagonal branch. The lesion was dilated using a 2.25 x 12 mm Emerge balloon. Multiple dilatations were performed. The balloon was removed and a 2.75 x 34 mm Resolute [place] drug-eluting stent was deployed across the mid-lesions at 14 atmospheres for about 20 seconds. The stent carrier was removed and the wire and the guide was removed. The stent was post dilated using a 3 x 15 mm noncompliant Quantum apex balloon. Multiple dilatations were performed all along the course of the stent. Patient was given aspirin, Plavix and Angiomax during the procedure. Patient tolerated the procedure without any complications. REPORT LEFT MAIN: Is of normal caliber and no significant stenosis. LEFT ANTERIOR DESCENDING: Normal caliber and 99% mid-lesion. There is another 60% to 70% mid-lesion after the origin of the 1st diagonal branch. LEFT CIRCUMFLEX: Normal caliber with 40% to 50% mid-lesion. RIGHT CORONARY ARTERY: Normal caliber and has 70% mid-lesion and another 40% mid-lesion. LV-GRAM: The anterior apical wall is hypokinetic. Overall ejection fraction is 30% to 35%. HEMODYNAMICS: Aortic pressure is 132/74. LV pressure is 167/17. LVEDP is 37. Balloon used is a 2.25 x 12 mm Emerge. Stent used is a 2.75 x 34 mm Resolute [place] drug-eluting stent that was deployed in the mid-LAD. A 3 x 15 mm noncompliant Quantum apex balloon was used to post dilate the stent. There was zero percent residual stenosis and REYNALDO-III flow noted. Job#: [id number] [place]
== END 2018-08-29 10:28 | disposition home or self-care (01) ==
LOC: CATH LAB 06:12 → CATH LAB V 12:49 → IMCU 13:47
DX: I25.10 Atherosclerotic heart disease of native coronary artery without angina pectoris (principal); R07.2 Precordial pain; I35.0 Nonrheumatic aortic (valve) stenosis; I35.1 Nonrheumatic aortic (valve) insufficiency; I07.1 Rheumatic tricuspid insufficiency; I34.0 Nonrheumatic mitral (valve) insufficiency; I11.0 Hypertensive heart disease with heart failure; I50.32 Chronic diastolic (congestive) heart failure; E66.9 Obesity, unspecified; R94.39 Abnormal result of other cardiovascular function study; G47.33 Obstructive sleep apnea (adult) (pediatric); Z88.1 Allergy status to other antibiotic agents; K21.9 Gastro-esophageal reflux disease without esophagitis; Z01.810 Encounter for preprocedural cardiovascular examination; Z01.812 Encounter for preprocedural laboratory examination; Z01.811 Encounter for preprocedural respiratory examination; Z68.41 Body mass index [BMI] 40.0-44.9, adult; Z82.49 Family history of ischemic heart disease and other diseases of the circulatory system
CPT/HCPCS: 93458; C9600; 36415; 71046; 80048; 80053; 80061; 85025; 85347; 85610; 85730; 92928; 93005; 93306; C1766; C1874; G0378; J0583; J2001; J2250; J7030; Q9967

== ENCOUNTER → 2019-06-10 | Outpatient (CLI) | payer MEDICARE ==
[~2019-06-10] MED LIST changes: +ASPIR 8181 MG; +ATORVASTATIN CA20 MG PO; +LISINOPRIL2.5 MG PO; +NITROGLYCERIN0.4 MG SL; +PLAVIX75 MG PO
== END ==
LOC: MRI 08:47
PROVIDERS: ATTEND Ophthalmology
DX: H05.243 Constant exophthalmos, bilateral (principal)

== ENCOUNTER 2019-06-27 19:28 | Emergency (ER) | payer MEDICARE, OTHER ==
[~2019-06-27] VITALS: Ht 185.4 cm; Wt 145.1 kg
--- OUTSIDE RECORDS SUMMARY | 2019-06-27 19:31 | XMS REPORT | Summary of Care ---
Author Author [facility] - Health Organization [facility] - Health Address Unknown Phone Unavailable Care Team Providers Care Freight Forwarder Name Role Phone Srinivas Hurtado PCP Reason for Visit * Reason Comments Pre-Visit Planning Encounter Details Care Team Description Date Type Department Ruben Alarcon MD [address] [facility] [address] [place] [address] Pre-Visit Planning 04/01/2019 Telephone [facility] - Science Instructor, [address] [phone] Allergies Comments Active Allergy Reactions Severity Noted Date Azithromycin Hives 03/03/2019 documented as of this encounter (statuses as of 04/01/2019) Medications End Date Status Medication Sig Dispensed Refills Start Date 04/01/2019 Discontinued metoprolol succinate XL Take 25 mg by 0 25 mg 24 hr tablet mouth daily. 04/01/2019 Discontinued hydrALAZINE 25 mg tablet Take 25 mg by 0 mouth 2 (two) times daily. 04/01/2019 Discontinued amLODIPine 10 mg tablet Take 10 mg by 0 mouth daily. 04/01/2019 Discontinued ASPIRIN LOW DOSE ORAL Take 81 mg by 0 mouth daily. 04/01/2019 Discontinued tiZANidine 4 mg tablet Take 4 mg by 0 mouth at bedtime. 04/01/2019 Discontinued clopidogrel 75 mg Take 1 tablet 30 tablet 3 tabletIndications: Chest by mouth 9 pain, unspecified type, daily. S/P drug eluting coronary stent placement 04/01/2019 Discontinued furosemide 40 mg Take 1 tablet 30 tablet 0 tabletIndications: Chest by mouth 9 pain, unspecified type, daily. S/P drug eluting coronary stent placement Suspended atorvastatin 40 mg tablet TK 1 T PO QD 6 9 documented as of this encounter (statuses as of 04/01/2019) Active Problems Problem Noted Date S/P drug eluting coronary stent placement 03/04/2019 Overview: Resolute [place] 3.5mm x 12mm drug eluting stent to RCA by Dr. Alarcon on 03/04/19 documented as of this encounter (statuses as of 04/01/2019) Social History Date Tobacco Use Types Packs/Day Years Used Never Assessed Sex Assigned at Date Recorded Not on file Industry Job Start Date Occupation Not on file Not on file Not on file Travel End Travel History Travel Start No recent travel history available. documented as of this encounter Last Filed Vital Signs Not on filedocumented in this encounter Plan of Treatment Care Team Description Date Type Specialty Ruben Alarcon MD [address] [place] [address] [place], [place] [id number] 2, Clc Cardiac Proc Room 04/08/2019 Appointment Cardiac Science Instructor Health Maintenance Due Date Last Done Comments HEPATITIS C (HCV) SCREEN 1945 DTaP,Tdap,and Td Vaccines 11/25/1963 (1 - Tdap) COLONOSCOPY 1994 Zoster Recombinant 1994 Vaccine (SHINGRIX) (1 of 2) Medicare Wellness Visit 2009 PNEUMOCOCCAL VACCINES 65+ 2009 (1 of 2 - PCV13) INFLUENZA VACCINE (#1) 2019 documented as of this encounter Results Not on filedocumented in this encounter Insurance Type Payer Benefit Subscriber ID Effective Phone Address Plan / Dates Group Medicare Adv HMO/POS [employer]ARE [employer] [id number] 2019-P [employer] resent CHOICE documented as of this encounter
--- OUTSIDE RECORDS SUMMARY | 2019-06-27 19:31 | XMS REPORT | Summary of Care ---
Author Author [facility] - Health Organization [facility] - Health Address Unknown Phone Unavailable Care Team Providers Care Home Health Administrator Name Role Phone BryantSrinivas Tanner PCP Encounter Details Care Team Description Date Type Department Doctor Unassigned, [place] [address] [place] [id number] 04/08/2019 Orders Only [facility] [address] [place] [address] Allergies Comments Active Allergy Reactions Severity Noted Date Azithromycin Hives 03/03/2019 documented as of this encounter (statuses as of 04/08/2019) Medications No known medicationsdocumented as of this encounter (statuses as of 04/08/2019) Active Problems Problem Noted Date S/P drug eluting coronary stent placement 03/04/2019 Overview: Resolute [place] 3.5mm x 12mm drug eluting stent to RCA by Dr. Alarcon on 03/04/19 documented as of this encounter (statuses as of 04/08/2019) Social History Date Tobacco Use Types Packs/Day [...] Date Type Specialty Ruben Alarcon MD [address] [facility] [place] [address] [place], [place] [id number] 2, Clc Cardiac Proc Room 04/08/2019 Appointment Cardiac Mastic Worker Health Maintenance Due Date Last Done Comments HEPATITIS C (HCV) SCREEN 1944 DTaP,Tdap,and Td Vaccines 11/25/1963 (1 - Tdap) COLONOSCOPY 1994 Zoster Recombinant 1994 Vaccine (SHINGRIX) (1 of 2) Medicare Wellness Visit 2009 PNEUMOCOCCAL VACCINES 65+ 2009 (1 of 2 - PCV13) INFLUENZA VACCINE (#1) 2019 documented as of this encounter Procedures Comments Procedure Name Priority Date/Time Associated Diagnosis ASSIGNMENT OF BENEFITS Routine 04/08/2019 10:43 AM CDT documented in this encounter Results Not on filedocumented in this encounter Insurance Type Payer Benefit Subscriber ID Effective Phone Address Plan / Dates Group Medicare Adv HMO/POS WELL[employer]ARE [employer] [id number] 2019-P [employer] resent CHOICE documented as of this encounter
--- OUTSIDE RECORDS SUMMARY | 2019-06-27 19:31 | XMS REPORT | Summary of Care ---
Author Author [facility] - Health Organization [facility] - Health Address Unknown Phone Unavailable Care Team Providers Care Lieutenant General Name Role Phone Srinivas Hurtado PCP Reason for Visit * (Routine) Referred By Contact Referred To Contact Status Reason Specialty Diagnoses / Procedures Ruben Alarcon MD [address] [place] [address] Ruben Alarcon MD [address] [place] [address] Closed IM-CARDIOVASCULA Diagnoses R DISEASE / [facility] + PERIO Cardiac Cattle Manager ANGIO P rocedures LA CATH PLMT L HRT & ARTS W/NJX & ANGIO IMG S&I LA PRQ TRLUML CORONARY STENT W/ANGIO ONE ART/BRNCH LA PERC DRUG-EL COR STENT SING LA CATH, TRANSLUMIN NON-LASER LA INTRODUCTION CATHETER AORTA LA SLCTV CATHJ 3RD+ ORD SLCTV ABDL PEL/LXTR BRNCH LA SLCTV CATHJ EA 2ND+ ORD ABDL PEL/LXTR ART BRNCH CHG ANGIO AORTOGRAM ABD SERIAL CHG ANGIO EXTREMITY UNILAT CHG ANGIO EXTERMITY BILAT CHG ANGIO EA ADDNL SELECTV VESSEL CHG ANGIO AORTOBIFEMORAL W CATH [facility] Encounter Details Care Team Description Date Type Department Ruben Alarcon MD [address] [place] [address] [phone] 2, Clc Cardiac Proc Room S/P drug eluting coronary stent placement (Primary Dx) 04/08/2019 Hospital [facility] Encounter - Cattle Manager, [address] [id number] Allergies Comments Active Allergy Reactions Severity Noted Date Azithromycin Hives 03/03/2019 documented as of this encounter (statuses as of 04/09/2019) Medications End Date Status Medication Sig Dispensed Refills Start Date Active clopidogrel (PLAVIX) 75 Take 75 mg by 0 mg tablet mouth daily. Active aspirin 81 mg chewable Take 81 mg by 0 tablet mouth daily. Active amlodipine Take 10-40 mg 0 besylate/benazepril by mouth (AMLODIPINE-BENAZEPRIL daily. ORAL) Active Omeprazole 20 mg tablet Take by 0 mouth daily. Active HYDRAZINE SULFATE, BULK, 25 mg daily. 0 MISC Active metoprolol succinate XL Take 25 mg by 0 25 mg 24 hr tablet mouth daily. Active furosemide (LASIX) 40 mg Take 40 mg by 0 tablet mouth daily. 04/08/2019 Discontinued atorvastatin 40 mg Take 1 tablet 90 tablet 3 tabletIndications: by mouth at 9 Percutaneous Coronary bedtime. Intervention Indications: Incision through the Skin to Repair Blood Vessels of Heart documented as of this encounter (statuses as of 04/09/2019) Active Problems Problem Noted Date S/P drug eluting coronary stent placement 03/04/2019 Overview: Resolute [place] 3.5mm x 12mm drug eluting stent to RCA by Dr. lAarcon on 03/04/19 documented as of this encounter (statuses as of 04/09/2019) Social History Date Tobacco Use Types Packs/Day Years Used Never Assessed Sex Assigned at Date Recorded Not on file Industry Job Start Date Occupation Not on file Not on file Not on file Travel End Travel History Travel Start No recent travel history available. documented as of this encounter Last Filed Vital Signs Reading Time Taken Comments Vital Sign 151/70 04/08/2019 5:45 PM CDT Blood Pressure 69 04/08/2019 5:45 PM CDT Pulse 36.4 C (97.6 F) 04/08/2019 11:16 AM CDT Temperature 20 04/08/2019 5:45 PM CDT Respiratory Rate 95% 04/08/2019 5:45 PM CDT Oxygen Saturation - - Inhaled Oxygen Concentration 145 kg (319 lb 10.7 oz) 04/08/2019 1:54 PM CDT Weight 185 cm (6' 0.84") 04/08/2019 1:54 PM CDT Height 42.37 04/08/2019 1:54 PM CDT Body Mass Index documented in this encounter Discharge Instructions * Instructions* Desi Suazo RN - 04/08/2019 Patient Discharge Instructions Follow instructions as indicated below: Discharge Orders Activity As Tolerated Lift nothing heavier than 5 pounds for 2 weeks Do not operate a motorized vehicle for 2 days Keep area dry and clean Do not remove band-aid for the first 24 hours after procedure Do not soak in bathtub or hot tub for the first 24 hours after procedure Watch for bleeding, swelling, pain, fever, and any discharge call the Cattle Manager ( during hours) Order Comments: At nights, weekends or holidays, call the [facility] hospital grinder set up operator universal at . Ask the grinder set up operator universal to page the Cardiac Cath Fellow who is on[facility]. Avoid making important life decisions for the first 48 hours No strenuous activity for 72 hours Drink plenty of water Continue previous outpatient medications Hold Metformin for 48 hours Cardiac (2 gm Sodium, Low Fat, Low Cholesterol) Diet; Texture: Regular. Texture Regular. Diabetic: No Cardiac (2 g Na, Low Fat/Chol) 1800 Calorie Diabetic Consistent Carbs Diet - inc ludes HS Snack; Texture: Regular Texture Regular Diabetic: No Discharge Condition - Discharge Condition: GOOD Discharge Activity Discharge Activity: As Tolerated Discharge Activity: No Heavy Lifting or Strenuous Activity Resume pre procedure diet Order Comments: Resume pre procedure diet No VTE Prophylaxis given- Patient low risk for VTE; Not ordered during hospitali zation Weight: In general, sudden weight gains or losses should be reported to your pro vider. Cardiac patients should weigh daily and notify their provider for a weig ht gain of 3 pounds per day or 5 pounds per week. Follow-up appointments: To schedule other appointments, call the [facility] Health Access Center at or . You may also make appointments online by going to [email or web address] and follow the Request Appointment quicklink. Take Home Medications These are medications ordered for you by your healthcare provider. Do not take a ny other medications or supplements unless advised by your healthcare provider. Patient's Medications START taking these medications No medications on file CONTINUE taking these medications which have NOT CHANGED AMLODIPINE BESYLATE/BENAZEPRIL (AMLODIPINE-BENAZEPRIL ORAL) Take 10-40 mg by mouth daily. ASPIRIN 81 MG CHEWABLE TABLET Take 81 mg by mouth daily. CLOPIDOGREL (PLAVIX) 75 MG TABLET Take 75 mg by mouth daily. FUROSEMIDE (LASIX) 40 MG TABLET Take 40 mg by mouth daily. HYDRAZINE SULFATE, BULK, MISC 25 mg daily. METOPROLOL SUCCINATE XL 25 MG 24 HR TABLET Take 25 mg by mouth daily. OMEPRAZOLE 20 MG TABLET Take by mouth daily. START taking Modified Medications as Prescribed No medications on file STOP taking these medications No medications on file Medications: Your doctor may prescribe medicine to prevent blood clots. You ma y also have to take medicine to prevent chest pain. Take your medicine as usual after the procedure unless your doctor has told you to stop. Any changes in your medicine's schedule will be explained to you. For questions regarding follow-up instructions call the [facility] Health Access Cente r at or For worsening symptoms/changing condition/problems or questions: During normal business hours call the [facility] Cardiac Cattle Manager at [phone]. At nights, weekends or holidays, call the [facility] hospital grinder set up operator universal at . Emergency: Go to the closest emergency room or call [phone] Signs and Symptoms of a Problem: Call your doctor if you have any of the follow ing problems: Fever Swelling, pain, redness around the puncture site Foul smell or drainage from the site Odd changes in sensations, like numbness, tingling, coldness or pain in the a rm or leg where the catheter was inserted. If you start Bleeding: Apply pressure to the site. If the bleeding continues, h ave someone call your doctor and make arrangements to see him/her. Please follo w the doctor's directions. Our Goal is to Always Provide You with Very Good Care! We will be mailing you a survey, Please complete and return at your convenience. Thank You TOBACCO AVOIDANCE Exposure to tobacco either from smoking or from second hand (environmental) smok e or smokeless tobacco (snuff) is damaging to your health. This information is to encourage everyone to avoid tobacco exposure. It is recommended that you: ? If you smoke or use smokeless tobacco, we encourage you to quit. ? If you have already quit smoking, continue your good work! ? If you do not smoke or use smokeless tobacco, do not start. ? Avoid secondhand smoke. Additional Resources You may want to contact these organizations for further information on smoking a nd how to quit. [place] [employer], http://www.lungusa.org/stop-smoking/ [place] [employer], http://www.cancer.org/Healthy/StayAwayfromTobacco/index [place] [employer], http://www.heart.org/HEARTORG/GettingHealthy/QuitSmo zakia/Quit-Smoking_[facility]_001085_SubHomePage.jsp documented in this encounter Plan of Treatment Health Maintenance Due Date Last Done Comments HEPATITIS C (HCV) SCREEN 1944 DTaP,Tdap,and Td Vaccines 11/25/1963 (1 - Tdap) COLONOSCOPY 1994 Zoster Recombinant 1994 Vaccine (SHINGRIX) (1 of 2) Medicare Wellness Visit 2009 PNEUMOCOCCAL VACCINES 65+ 2009 (1 of 2 - PCV13) INFLUENZA VACCINE (#1) 2019 documented as of this encounter Procedures Comments Procedure Name Priority Date/Time Associated Diagnosis CATH PROCEDURE LOG Routine 04/08/2019 2:09 PM CDT CBC WITH DIFFERENTIAL Routine 04/08/2019 S/P drug eluting coronary 11:15 AM CDT stent placement PROTHROMBIN TIME / INR Routine 04/08/2019 S/P drug eluting coronary 11:15 AM CDT stent placement CBC WITH DIFF Routine 04/08/2019 S/P drug eluting coronary 11:15 AM CDT stent placement BASIC METABOLIC PANEL Routine 04/08/2019 S/P drug eluting coronary (NA, K, CL, CO2, GLUCOSE, 11:15 AM CDT stent placement BUN, CREATININE, CA) documented in this encounter Results * CBC WITH DIFFERENTIAL (04/08/2019 11:15 AM CDT) Pathologist [facility] WBC 8.76 4.20 - 10.70 [facility] 10*3/L [facility] RBC 5.05 4.26 - 5.52 10*6/L [facility] HGB 12.5 12.2 - 16.4 g/dL [facility] HCT 40.5 38.4 - 49.3 % [facility] MCV 80.2 (L) 81.7 - 95.6 fL [facility] MCH 24.8 (L) 26.1 - 32.7 pg [facility] MCHC 30.9 (L) 31.2 - 35.0 g/dL [facility] RDW-SD 56.3 (H) 38.5 - 51.6 fL [facility] RDW-CV 19.7 (H) 12.1 - 15.4 % [facility] PLT 262 150 - 328 10*3/L [facility] MPV 8.6 (L) 9.8 - 13.0 fL [facility] NRBC/100 WBC 0.0 0.0 - 10.0 /100 WBCs [facility] NRBC x10^3 <0.01 10*3/L [facility] GRAN MAT (NEUT) 69.5 % [facility] % [facility] IMM GRAN % 0.20 % [facility] LYMPH % 18.6 % [facility] MONO % 6.8 % [facility] EOS % 4.0 % [facility] BASO % 0.9 % [facility] GRAN MAT 6.08 1.99 - 6.95 10*3/uL [facility] x10^3(ANC) [facility] IMM GRAN x10^3 <0.03 0.00 - 0.06 10*3/uL [facility] LYMPH x10^3 1.63 1.09 - 3.23 10*3/uL [facility] MONO x10^3 0.60 0.36 - 1.02 10*3/uL [facility] EOS x10^3 0.35 0.06 - 0.53 10*3/uL [facility] BASO x10^3 0.08 0.01 - 0.09 10*3/uL [facility] Specimen Blood Performing Organization Address City/State/Zipcode Phone Number [facility] CLIA: [id number], [address] [place], [place] [address] [facility] * BASIC METABOLIC PANEL (NA, K, CL, CO2, GLUCOSE, BUN, CREATININE, CA) (04/08/2019 11:15 AM CDT) NA 140 135 - 145 mmol/L [facility] K 4.2 3.5 - 5.0 mmol/L [facility] CL 103 98 - 108 mmol/L [facility] CO2 TOTAL 27 23 - 31 mmol/L [facility] AGAP 10 2 - 16 [facility] BUN 18 7 - 23 mg/dL [facility] GLUCOSE 109 70 - 110 mg/dL [facility] CREATININE 0.84 0.60 - 1.25 mg/dL [facility] CALCIUM 9.1 8.6 - 10.6 mg/dL [facility] eGFR 89.3 mL/min/1.73m2 [facility] Calculation [facility] ([facility] [place]) eGFR 108.3 mL/min/1.73m2 [facility] Calculation [facility] ([facility] [place]) Specimen Blood Narrative Performed At Association of Glomerular Filtration Rate (GFR) and Staging of Kidney Disease* [facility] + + + + [facility] | GFR (mL/min/1.73 m2)| With Kidney Damage|Without Kidney Damage [place] + + + + |>90|Stage one| Normal + + + + |60-89|Stage two| Decreased GFR + + + + |30-59|Stage three| Stage three + + + + |15-29|Stage four | Stage four + + + + |<15 (or dialysis)|Stage five | Stage five + + + + *Each stage assumes the associated GFR level has been in effect for at least three months.Stages 1 to 5, with or without kidney disease, indicate chronic kidney disease. Notes: Determination of stages one and two (with eGFR >59mL/min/1.73 m2) requires estimation of kidney damage for at least three months as defined by structural or functional abnormalities of the kidney, manifested by either: Pathological abnormalities or Markers of kidney damage (including abnormalities in the composition of the blood or urine or abnormalities in imaging tests). Performing Organization Address City/State/Zipcode Phone Number [facility] CLIA: [id number], [address] [place] [address] [facility] * PROTHROMBIN TIME / INR (04/08/2019 11:15 AM CDT) PROTIME PATIENT 12.4 10.1 - 12.6 Seconds [facility] INR 1.1Comment: Normal INR <1.1; [facility] Warfarin Therapeutic range 2.0 [facility] to 3.0 or 2.5 to 3.5, [facility] depending upon the indications. Specimen Blood Performing Organization Address City/[facility]/Zipcode Phone Number [facility] CLIA: [id number], [address] [place] [address] [facility] documented in this encounter Visit Diagnoses Diagnosis S/P drug eluting coronary stent placement - Primary documented in this encounter Administered Medications Action Date Dose Rate Site Medication Order MAR Action 04/08/2019 12:00 PM CDT 0.5 mg ALPRAZolam (XANAX) tablet 0.5 mg Given 0.5 mg, Oral, ONCE, 1 dose, Sun04/08/19 at 1200, Routine 04/08/2019 2:10 PM CDT 108.75 mg bivalirudin (ANGIOMAX) IV bolus Given Slow IV Push, PRN, Starting Sun04/08/19 at 1410, Until Sun04/08/19 at 1410, Routine 04/08/2019 2:10 PM CDT 1.75 mg/kg/hr bivalirudin (ANGIOMAX) IV bolus New Bag Slow IV Push, CONTINUOUS PRN, Starting Sun04/08/19 at 1410, Until Sun04/08/19 at 1410, Routine 04/08/2019 12:00 PM CDT 25 mg diphenhydrAMINE (BENADRYL) tablet 25 mg Given 25 mg, Oral, ONCE, 1 dose, Sun04/08/19 at 1200, Routine 04/08/2019 2:09 PM CDT 50 mcg FENTanyl PF (SUBLIMAZE (PF)) injection Given Slow IV Push, PRN, Starting Sun04/08/19 at 1405, Until Sun04/08/19 at 1409, Routine 50 mcg Given 04/08/2019 2:05 PM CDT 04/08/2019 2:09 PM CDT 2 mg midazolam (VERSED) injection Given IV Push, PRN, Starting Sun04/08/19 at 1405, Until Sun04/08/19 at 1409, Routine 2 mg Given 04/08/2019 2:05 PM CDT 04/08/2019 2:20 PM CDT 300 mcg nitroglycerin (TRIDIL) 2 mg in 10 mL D5W Given for Cardiac Cath Intravenous, PRN, Starting Sun04/08/19 at 1420, Until Sun04/08/19 at 1420, Routine documented in this encounter Insurance Type Payer Benefit Subscriber ID Effective Phone Address Plan / Dates Group Medicare Adv HMO/POS [employer] [id number] [id number] [employer] CHO[employer] documented as of this encounter
--- OUTSIDE RECORDS SUMMARY | 2019-06-27 19:31 | XMS REPORT | Summary of Care ---
Author Author [facility] - Health Organization [facility] - Health Address Unknown Phone Unavailable Care Team Providers Care Configuration Management Analyst Name Role Phone Srinivas Hurtado PCP Reason for Referral * Other (Routine) Referred By Contact Referred To Contact Status Reason Specialty Diagnoses / Procedures Ricky Pelayo, [address] [phone] Laura Wayne MD [address] [place] [address] Closed Patient is Cardiology Diagnoses Established with a Chest pain, Specific Provider unspecified type S/P drug eluting coronary stent placement P rocedures Discharge Follow-up: Specialty Provider LAURA WAYNE; 2 Weeks Reason for Visit * (Routine) Referred By Contact Referred To Contact Status Reason Specialty Diagnoses / Procedures Laura Wayne MD [address] [place] [address] Laura Wayne MD [address] [place] [address] Closed IM-CARDIOVASCULA Diagnoses R DISEASE / [facility] + PCI Cardiac Global Position System Technician P rocedures CARDIAC CATH REQUEST FOR SERVICE MA CATH PLACEMENT & NJX CORONARY ART ANGIO IMG S&I MA CATH PLMT L HRT & ARTS W/NJX & ANGIO IMG S&I MA ENDOLUMINAL CORONARY IVUS OCT I&R INITIAL VESSEL MA IV DOP PRESTON&/OR PRESS C/ROSALES RSRV MARY 1ST VSL MA PRQ TRLUML CORONARY ANGIOPLASTY ONE ART/BRANCH MA PRQ TRLUML CORONARY ANGIO/ATHERECT ONE ART/BRNCH MA PRQ TRLUML CORONARY STENT W/ANGIO ONE ART/BRNCH MA PRQ TRLUML CORONRY STENT/ATH/ANGIO ONE ART/BRNCH LHC/PCI Encounter Details Care Team Description Date Type Department Laura Wayne MD [address] [place] [address] [phone] Leo Patel MD [address] [place], [place] [id number] 2, [facility] Cardiac Proc Room Chest pain, unspecified type (Primary Dx); S/P drug eluting coronary stent placement 03/04/2019 [facility] Encounter - Global Position System Technician, [address] [phone] Allergies Comments Active Allergy Reactions Severity Noted Date Azithromycin Hives 03/03/2019 documented as of this encounter (statuses as of 04/02/2019) Medications End Date Status Medication Sig Dispensed [...] Take 81 mg by 0 mouth daily. 03/04/2019 Discontinued furosemide 40 mg tablet Take 40 mg by 0 mouth daily. 04/01/2019 Discontinued [...] daily. S/P drug eluting coronary stent placement documented as of this encounter (statuses as of 04/02/2019) Active Problems Problem Noted Date S/P drug eluting coronary stent placement 03/04/2019 Overview: Resolute [place] 3.5mm x 12mm drug eluting stent to RCA by Dr. Wayne on 03/04/19 documented as of this encounter (statuses as of 04/02/2019) Social History Date Tobacco Use Types Packs/Day Years Used Never Assessed Sex Assigned at Date Recorded Not on file Industry Job Start Date Occupation Not on file Not on file Not on file Travel End Travel History Travel Start No recent travel history available. documented as of this encounter Last Filed Vital Signs Reading Time Taken Comments Vital Sign 138/92 03/04/2019 4:45 PM CDT Blood Pressure 66 03/04/2019 4:45 PM CDT Pulse 36.3 C (97.3 F) 03/04/2019 1:13 PM CDT Temperature 23 03/04/2019 4:45 PM CDT Respiratory Rate 96% 03/04/2019 4:45 PM CDT Pulse ox censor to right thumb Oxygen Saturation - - Inhaled Oxygen Concentration 145.2 kg (320 lb) 03/04/2019 1:02 PM CDT Weight 185.4 cm (6' 1") 03/04/2019 1:02 PM CDT Height 42.22 03/04/2019 1:02 PM CDT Body Mass Index documented in this encounter Discharge Summaries * Ricky Pelayo FNP - 03/04/2019 5:29 PM CDT Cardiac Cath/EP Lab OP Discharge Summary Date of Service/Surgery/Discharge: 03/04/2019 5:29 PM Performing Physician: Dr. Laura Wayne PCP: Srinivas Hurtado PRIMARY DIAGNOSIS: CAD PRINCIPAL PROCEDURE: selective coronary angiography, left heart cath, PCI with s tent DISCHARGE CONDITION: Good DIET: Pre-procedure diet as tolerated ACTIVITY: No strenuous activity or heavy lifting x7 days; no driving x 2 days DISCHARGE MEDICATIONS: Current Discharge Medication List START taking these medications Details clopidogrel 75 mg tablet Take 1 tablet by mouth daily. Qty: 30 tablet, Refills: 3 Associated Diagnoses: Chest pain, unspecified type; S/P drug eluting coronary s tent placement CONTINUE these medications which have CHANGED Details furosemide 40 mg tablet Take 1 tablet by mouth daily. Qty: 30 tablet, Refills: 0 Associated Diagnoses: Chest pain, unspecified type; S/P drug eluting coronary s tent placement CONTINUE these medications which have NOT CHANGED Details amLODIPine 10 mg tablet Take 10 mg by mouth daily. ASPIRIN LOW DOSE ORAL Take 81 mg by mouth daily. hydrALAZINE 25 mg tablet Take 25 mg by mouth 2 (two) times daily. metoprolol succinate XL 25 mg 24 hr tablet Take 25 mg by mouth daily. tiZANidine 4 mg tablet Take 4 mg by mouth at bedtime. Pt was given Rx for clopidogrel and lasix (out of refill) WOUND CARE: Can remove dressing tomorrow, ok to shower tomorrow, do not submerge for 7-10 da ys DISCHARGE: Home FOLLOW-UP APPOINTMENT: [address] Wayne Patient was given discharge instructions. WAYLON Jacob 03/04/2019 5:[address] Wayne documented in this encounter Discharge Instructions * Instructions* Janell Maya RN - 03/04/2019 Patient Discharge Instructions Follow instructions as indicated [...] pain, fever, and any discharge call the Global Position System Technician ( during hours) Order Comments: At nights, weekends or holidays, call the [facility] hospital sweet goods machine operator at . Ask the sweet goods machine operator to page the Cardiac Cath Fellow who is on-ca ll. Avoid making important life decisions for the first 48 hours No strenuous activity for 72 hours Drink plenty of water Continue previous outpatient medications Discharge Follow-up: Specialty Provider LAURA WAYNE; 2 Weeks To Provider: LAURA WAYNE [[id number]] Patient's Preferred Location: [place] Discharge Disposition: HOME, ([facility]) When (Patients with risk for unplanned readmission score over 16 or those noted as Hospital Dependent should follow up within 7 days with PCP or primary DX spec ialist): 2 Weeks Cardiac (2 gm Sodium, Low Fat, Low Cholesterol) Diet; Texture: Regular. Texture Regular. Diabetic: No Discharge Condition - Discharge Condition: GOOD Discharge Activity Discharge Activity: No Heavy Lifting or Strenuous Activity Discharge Activity: As Tolerated Resume pre procedure diet Order Comments: Resume [...] appointments: To schedule other appointments, call the [facility] at or . You may also make appointments online by going to [email or web address] and follow the Request Appointment quicklink. Take Home Medications These are medications ordered for you by your healthcare provider. Do not take a ny other medications or supplements unless advised by your healthcare provider. Current Discharge Medication List START taking these medications Details clopidogrel 75 mg tablet Take 1 tablet by mouth daily. Qty: 30 tablet, Refills: 3 Associated Diagnoses: Chest pain, unspecified type; S/P drug eluting coronary s tent placement CONTINUE these medications which have CHANGED Details furosemide 40 mg tablet Take 1 tablet by mouth daily. Qty: 30 tablet, Refills: 0 Associated Diagnoses: Chest pain, unspecified type; S/P drug eluting coronary s tent placement CONTINUE these medications which have NOT CHANGED Details amLODIPine 10 mg tablet Take 10 mg by mouth daily. ASPIRIN LOW DOSE ORAL Take 81 mg by mouth daily. hydrALAZINE 25 mg tablet Take 25 mg by mouth 2 (two) times daily. metoprolol succinate XL 25 mg 24 hr tablet Take 25 mg by mouth daily. tiZANidine 4 mg tablet Take 4 mg by mouth at bedtime. Medications: Your doctor may prescribe medicine to prevent blood clots. You ma y also have to take medicine to prevent chest pain. Take your medicine as usual after the procedure unless your doctor has told you to stop. Any changes in you r medicine's schedule will be explained to you. For questions regarding follow-up instructions call the [facility] rosario at or For worsening symptoms/changing condition/problems or questions: During normal business hours call the [facility] Cardiac Global Position System Technician at . At nights, weekends or holidays, call the [facility] hospital sweet goods machine operator at . Ask the sweet goods machine operator to page the Cardiac Cath Fellow who is on-call. Emergency: Go to the closest emergency room or call [phone] Signs and Symptoms of a Problem: Call [...] on smoking a nd how to quit. [employer], http://www.lungusa.org/stop-smoking/ [employer], http://www.cancer.org/Healthy/StayAwayfromTobacco/index [place] [employer], http://www.heart.org/HEARTORG/GettingHealthy/QuitSmo zakia/Quit-Smoking_[facility]_001085_SubHomePage.jsp * Attachments The following attachments cannot be sent through Care Everywhere.* Cardiac Catheterization, Bleeding or Hematoma After (Amharic) documented in this encounter Plan of Treatment Care Team Description Date Type Specialty Laura Wayne MD [address] [place] [address] [phone], [facility] Cardiac Proc Room 04/08/2019 Appointment Cardiac Global Position System Technician Order Schedule Name Type Priority Associated Diagnoses ONCE for 1 Occurrences starting 03/04/2019 until 03/04/2019 EKG-12 LEAD ROUTINE HEART STATION STAT TOMORROW AM AT 0600 for 1 Occurrences starting 03/05/2019 until 03/05/2019 EKG-12 LEAD ROUTINE HEART STATION Routine Health Maintenance Due Date Last Done Comments HEPATITIS C (HCV) SCREEN 1944 DTaP,Tdap,and Td Vaccines 11/25/1963 (1 - Tdap) COLONOSCOPY 1994 Zoster Recombinant 1994 Vaccine (SHINGRIX) (1 of 2) Medicare Wellness Visit 2009 PNEUMOCOCCAL VACCINES 65+ 2009 (1 of 2 - PCV13) INFLUENZA VACCINE (#1) 2019 documented as of this encounter Procedures Comments Procedure Name Priority Date/Time Associated Diagnosis EXTERNAL PROVIDER RECORDS Routine 03/20/2019 12:01 AM CDT EXTERNAL PROVIDER RECORDS Routine 03/19/2019 12:01 AM CDT EXTERNAL PROVIDER RECORDS Routine 03/05/2019 12:01 AM CDT CATH PROCEDURE LOG Routine 03/04/2019 3:36 PM CDT CBC WITH DIFFERENTIAL Routine 03/04/2019 Chest pain, unspecified 1:24 PM CDT type PROTHROMBIN TIME / INR Routine 03/04/2019 Chest pain, unspecified 1:24 PM CDT type CBC WITH DIFF Routine 03/04/2019 Chest pain, unspecified 1:24 PM CDT type BASIC METABOLIC PANEL Routine 03/04/2019 Chest pain, unspecified (NA, K, CL, CO2, GLUCOSE, 1:24 PM CDT type BUN, CREATININE, CA) OUTPATIENT CARDIAC Routine 03/04/2019 CATHETERIZATION DOCUMENTS 12:01 AM CDT documented in this encounter Results * CBC WITH DIFFERENTIAL (03/04/2019 1:24 PM CDT) WBC 8.35 4.20 - 10.70 [facility] 10*3/L [facility] RBC 4.91 4.26 - 5.52 10*6/L [facility] HGB 11.6 (L) 12.2 - 16.4 g/dL [facility] HCT 38.6 38.4 - 49.3 % [facility] MCV 78.6 (L) 81.7 - 95.6 fL [facility] MCH 23.6 (L) 26.1 - 32.7 pg [facility] MCHC 30.1 (L) 31.2 - 35.0 g/dL [facility] RDW-SD 55.5 (H) 38.5 - 51.6 fL [facility] RDW-CV 19.9 (H) 12.1 - 15.4 % [facility] PLT 261 150 - 328 10*3/L [facility] MPV 8.5 (L) 9.8 - 13.0 fL [facility] NRBC/100 WBC 0.0 0.0 - 10.0 /100 WBCs [facility] NRBC x10^3 <0.01 10*3/L [facility] GRAN MAT (NEUT) 67.9 % [facility] % [facility] IMM GRAN % 0.20 % [facility] LYMPH % 19.8 % [facility] MONO % 6.8 % [facility] EOS % 4.7 % [facility] BASO % 0.6 % [facility] GRAN MAT 5.67 1.99 - 6.95 10*3/uL [facility] x10^3(ANC) [facility] IMM GRAN x10^3 <0.03 0.00 - 0.06 10*3/uL [facility] LYMPH x10^3 1.65 1.09 - 3.23 10*3/uL [facility] MONO x10^3 0.57 0.36 - 1.02 10*3/uL [facility] EOS x10^3 0.39 0.06 - 0.53 10*3/uL [facility] BASO x10^3 0.05 0.01 - 0.09 10*3/uL [facility] Specimen Blood Performing Organization Address City/State/Zipcode Phone Number [facility] CLIA: [id number], [address] [place] [address] [facility] * BASIC METABOLIC PANEL (NA, K, CL, CO2, GLUCOSE, BUN, CREATININE, CA) (03/04/2019 1:24 PM CDT) NA 138 135 - 145 mmol/L [facility] K 4.2 3.5 - 5.0 mmol/L [facility] CL 104 98 - 108 mmol/L [facility] CO2 TOTAL 28 23 - 31 mmol/L [facility] AGAP 6 2 - 16 [facility] BUN 22 7 - 23 mg/dL [facility] GLUCOSE 99 70 - 110 mg/dL [facility] CREATININE 0.83 0.60 - 1.25 mg/dL [facility] CALCIUM 9.0 8.6 - 10.6 mg/dL [facility] eGFR 90.6 mL/min/1.73m2 [facility] Calculation [facility] ([facility]) eGFR 109.8 mL/min/1.73m2 [facility] Calculation [facility] ([facility]) Specimen Blood Narrative Performed At Association of Glomerular Filtration Rate (GFR) and Staging of Kidney Disease* [facility] + + + + [facility] | GFR (mL/min/1.73 m2)| With Kidney Damage|Without Kidney Damage CAMPUS + + + + |>90|Stage one| Normal [...] tests). Performing Organization Address City/State/Zipcode Phone Number [facility] CLIA: [id number], [address] [place] [address] [facility] * PROTHROMBIN TIME / INR (03/04/2019 1:24 PM CDT) PROTIME PATIENT 12.2 10.1 - 12.6 Seconds [facility] INR 1.1Comment: Normal INR <1.1; [facility] Warfarin Therapeutic range 2.[address] [facility] to 3.0 or 2.5 to 3.5, [facility] depending upon the indications. Specimen Blood Performing Organization Address City/[facility] Phone Number [facility] CLIA: [id number], [address] [place] [address] [facility] documented in this encounter Visit Diagnoses Diagnosis Chest pain, unspecified type - Primary S/P drug eluting coronary stent placement documented in this encounter Administered Medications Action Date Dose Rate Site Medication Order MAR Action 03/04/2019 1:40 PM CDT 0.5 mg ALPRAZolam (XANAX) tablet 0.5 mg Given 0.5 mg, Oral, ONCE, 1 dose, Sun03/04/19 at 1430, Routine 03/04/2019 4:08 PM CDT 325 mg aspirin tablet Given Oral, TITRATE - FOR PROCEDURE USE, 1 dose, Starting Sun03/04/19 at 1608, Until Sun03/04/19 at 1608, Routine 03/04/2019 3:47 PM CDT 108.9 mg bivalirudin (ANGIOMAX) IV bolus Given Slow IV Push, TITRATE - FOR PROCEDURE USE, 1 dose, Starting Sun03/04/19 at 1547, Until Sun03/04/19 at 1547, Routine 03/04/2019 3:50 PM CDT 1.75 mg/kg/hr bivalirudin (ANGIOMAX) IV bolus New Bag Slow IV Push, CONTINUOUS PRN, Starting Sun03/04/19 at 1613, Until Sun03/04/19 at 1550, Routine 03/04/2019 1:40 PM CDT 50 mg diphenhydrAMINE (BENADRYL) tablet 50 mg Given 50 mg, Oral, ONCE, 1 dose, Sun03/04/19 at 1430, Routine 03/04/2019 3:32 PM CDT 50 mcg FENTanyl PF (SUBLIMAZE (PF)) injection Given Slow IV Push, TITRATE - FOR PROCEDURE USE, 1 dose, Starting Sun03/04/19 at 1532, Until Sun03/04/19 at 1532, Routine 03/04/2019 3:36 PM CDT 3 mL lidocaine 1% (PF) (XYLOCAINE) injection Given Infiltration, TITRATE - FOR PROCEDURE USE, 1 dose, Starting Sun03/04/19 at 1536, Until Sun03/04/19 at 1536, Routine 03/04/2019 3:32 PM CDT 2 mg midazolam (VERSED) injection Given IV Push, TITRATE - FOR PROCEDURE USE, 1 dose, Starting Sun03/04/19 at 1532, Until Sun03/04/19 at 1532, Routine 03/04/2019 4:08 PM CDT 60 mg prasugrel (EFFIENT) tablet Given Oral, TITRATE - FOR PROCEDURE USE, 1 dose, Starting Sun03/04/19 at 1608, Until Sun03/04/19 at 1608, Routine documented in this encounter Insurance Type Payer Benefit Subscriber ID Effective Phone Address Plan / Dates Group Medicare Adv HMO/POS [employer] [id number] 2019-P [employer] CHOICE documented as of this encounter
== END 2019-06-27 21:10 | disposition home or self-care (01) ==
LOC: ER 19:28
DX: I10 Essential (primary) hypertension (principal); I73.9 Peripheral vascular disease, unspecified; I25.10 Atherosclerotic heart disease of native coronary artery without angina pectoris; I48.91 Unspecified atrial fibrillation; K21.9 Gastro-esophageal reflux disease without esophagitis
CPT/HCPCS: 99282

== ENCOUNTER 2019-09-28 08:46 | Emergency (ER) | payer OTHER ==
[~2019-09-28] VITALS: Ht 185.4 cm; Wt 145.1 kg
--- NOTE | 2019-09-28 09:16 | NUR ---
PT STATES HE HAS APPT TOMORROW WITH DR SANTILLAN IN THE AFTERNOON AND WILL KEEP APPT AND FOLLOW UP
== END 2019-09-28 09:17 | disposition home or self-care (01) ==
LOC: ER 08:46
DX: I10 Essential (primary) hypertension (principal)
CPT/HCPCS: 99283

== ENCOUNTER 2023-05-18 09:40 | Emergency (ER) | payer MEDICARE ==
[~2023-05-18] VITALS: Ht 185.4 cm; Wt 153.8 kg
[2023-05-18 09:42] VITALS: O2SAT 97
[2023-05-18] MEDS ORDERED: FUROSEMIDE INJ 10 MG/ML 4 ML VIAL IV ONE (10:30)
[2023-05-18 10:39] LABS: BASOPHILS # (AUTO) 0.1 (0.0-0.1); BASOPHILS % 0.9 % (0.0-1.0); EOSINOPHILS # (AUTO) 0.2 (0.0-0.4); EOSINOPHILS % 2.9 % (0.0-6.0); HEMATOCRIT 30.5 % (38.2-49.6); HEMOGLOBIN 8.9 g/dL (14.0-18.0); LYMPHOCYTES # (AUTO) 0.9 (1.0-3.2); LYMPHOCYTES % 13.7 % (18.0-39.1); MEAN CORPUSCULAR HEMOGLOBIN 21.9 pg (28-32); MEAN CORPUSCULAR HGB CONC 29.2 g/dL (31-35); MEAN CORPUSCULAR VOLUME 75.1 fL (81-99); MONOCYTES # (AUTO) 0.4 (0.2-0.8); MONOCYTES % 6.1 % (4.4-11.3); NEUTROPHILS # (AUTO) 4.9 (2.1-6.9); NEUTROPHILS % 75.2 % (38.7-80.0); PLATELET COUNT 310 x10e3/uL (140-360); RED BLOOD COUNT 4.06 x10e6/uL (4.3-5.7); RED CELL DISTRIBUTION WIDTH 19.5 % (11.7-14.4); WHITE BLOOD COUNT 6.56 x10e3/uL (4.8-10.8)
[2023-05-18 10:55] LABS: INR 1.25; PROTHROMBIN TIME 16.5 seconds (11.9-14.5)
[2023-05-18 10:56] LABS: PARTIAL THROMBOPLASTIN TIME 34.6 seconds (23.8-35.5)
[2023-05-18 11:02] LABS: ALBUMIN 2.9 g/dL (3.5-5.0); ALBUMIN/GLOBULIN RATIO 0.8 (0.8-2.0); ANION GAP 12.1 mmol/L (8-16); CREATININE, SERUM 1.72 mg/dL (0.72-1.25); MAGNESIUM 2.1 MG/DL (1.3-2.1); POTASSIUM 4.1 mmol/L (3.5-5.1)
== END 2023-05-18 13:44 ==
LOC: ER 09:46
DX: R60.9 Edema, unspecified (principal); I50.9 Heart failure, unspecified; N18.9 Chronic kidney disease, unspecified; D64.9 Anemia, unspecified; E88.09 Other disorders of plasma-protein metabolism, not elsewhere classified
CPT/HCPCS: 36415; 71045; 80053; 83735; 84484; 85025; 85610; 85730; 99284